=== PATIENT | female | born 1955 | race African-American/Black ===

== ENCOUNTER 2021-12-29 09:15 | Day surgery (SDC) | payer MEDICARE, OTHER ==
[2021-12-27 15:45] VITALS: BMI 34.3
[2021-12-29 09:35] VITALS: TEMP 97.8
[2021-12-29 11:00] VITALS: BP 117/78; PULSE 76
== END 2021-12-29 11:07 | disposition home or self-care (01) ==
LOC: FASU-ENDO 09:15
PROVIDERS: ATTEND Internal Medicine Gastroenterology
PROC: 0DBN8ZX Excision of Sigmoid Colon, Via Natural or Artificial Opening Endoscopic, Diagnostic (ICD-10-PCS; principal; 2021-12-29 10:09)
DX: Z86.010 Personal history of colon polyps (principal); D12.5 Benign neoplasm of sigmoid colon; K64.1 Second degree hemorrhoids; K57.30 Diverticulosis of large intestine without perforation or abscess without bleeding
CPT/HCPCS: 88305-TC